=== PATIENT | female | born 1985 | race African-American/Black ===

== ENCOUNTER 2018-06-02 08:33 | Inpatient (IN) | payer OTHER ==
[~2018-06-02] VITALS: Ht 160 cm; Wt 83.0 kg
--- NOTE | 2018-06-02 09:59 | History & Physical ---
General Information and HPI MD Statement: I have seen and personally examined CHRISTIANO MCKEON and documented this H&P. The patient is a 32 year old female at 39 weeks and 1 days gestation who presented with a chief complaint of induction of labor. Source of Information: patient, old records Exam Limitations: no limitations History of Present Illness: Patient is a 32 year old female with history of x 2 and now at 39w1d with complicated by marginal cord insertion and for induction of labor as with favorable cervix. Good movement. No symptoms of preeclampsia. 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: labor Past Pregnancies Past Pregnancies: 1 Date of Delivery: 07/31/2000 Gestational Age: 25 Weight: [id number] Type of Delivery: vaginal Complications: none Past Pregnancies: 2 Date of Delivery: 02/17/2010 Gestational Age: 34 Weight: 5lb5oz Type of Delivery: vaginal Complications: none Past Pregnancies: 3 Date of Delivery: 06/03/2017 Gestational Age: 35 Weight: 6lb2oz Type of Delivery: vaginal Place of Delivery: [facility] Complications: none Medical History Blood Transfusion Hx: No Neurological: NONE EENT: NONE Cardiovascular: NONE Respiratory: NONE Gastrointestinal: NONE Hepatic: NONE Renal: NONE Musculoskeletal: NONE Psychiatric: NONE Endocrine: NONE Blood Disorders: anemia Cancer(s): NONE 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 Home Who Do You Live With? spouse, child Primary Language: Armenian Smoking Status: Never Smoked ETOH Use: denies use Illicit Drug Use: denies illicit drug use Living Will? 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 EENTM: Denies: no symptoms. Cardiovascular: Denies: no symptoms. Respiratory: Denies: no symptoms. GI: Denies: no symptoms. Genitourinary: Denies: no symptoms. Musculoskeletal: Denies: no symptoms. Skin: Denies: no symptoms. Neurological/Psychological: Reports: no symptoms, other (Sciatica pain on left side). Hematologic/Endocrine: Denies: no symptoms. Immunologic/Allergic: Denies: no symptoms. All Other Systems: Reviewed and Negative Date of LMP: 09/01/17 Post Menopausal: No Date of Last Pap Smear: 12/22/17 Comments Pap negative 2018 Exam & Diagnostic Data Last 24 Hrs of Vital Signs/I&O See electronic record Obstetric Exam Wgt Gained During : 13 lbs Pelvimetry: Gynecoid Dilation (cm): 3 Effacement (%): 50 Station: -3 Membranes: intact Fluid: Intact Fundal Height (cm): 39 Multiple Gestation? No Contractions: None Infant #1 - FHR Baseline: 140 Category: 1 Estimated Weight: 3200 Presentation: Cephalic Patient for Induction? Yes Gentile Score Gentile Score Response Value Cervix Position: posterior 0 Cervix Consistency: soft 2 Cervix Effacement: 30-50% 1 Cervix Dilation: 3-4 cm 2 Cervix Station: -3 0 Total 5 Physical Exam General Appearance Alert, Oriented X3, Cooperative, No Acute Distress Skin No Rashes, No Breakdown HEENT Atraumatic, PERRLA, EOMI Neck Supple, No JVD Cardiovascular Regular Rate, Normal S1, Normal S2, No Murmurs Lungs Clear to Auscultation, Normal Air Movement Abdomen Normal Bowel Sounds, Soft, No Tenderness Neurological Normal Gait, Normal Speech, Strength at 5/5 X4 Ext, Normal Tone, Sensation Intact, Cranial Nerves 3-12 NL, Reflexes 2+ Extremities No Edema Vascular Pulses Symmetrical Breasts Breast appear nl Reproductive (FEMALE) Normal female genitalia Pelvic (FEMALE) Appearance Normal Labs Blood Type & Rh: B positive Antibody Screen: negative Hct/Hgb & Platelets #1: 37.5/242 Hct/Hgb & Platelets #2: 32.3/226 Rubella: immune VDRL #1: negative VDRL #2: negative HbsAg: pending HIV #1: negative HIV #2 negative 1 Hr P 3 Hr PG: na Group B Strep: negative 05/07/2018 Initial Ultrasound: Normal at 16 weeks Anatomy Ultrasound: level 2 wnl except for marginal cord insertion Ultrasound for EFW: 04/28/18 2018 grams Genetic Testing: Negative NIPT and normal AFP Last 24 Hrs of Labs/Christ: Laboratory Tests 06/02/18 0915: CBC w Diff Pending, WBC Pending, RBC Pending, Hgb Pending, Hct Pending, MCV Pending, MCH Pending, MCHC Pending, RDW Pending, Plt Count Pending, MPV Pending, Hep Bs Antigen Pending Assessment/Plan Assessment/Plan: Patient is a 32 year old Para 1203 at 39w1d with complicated by obesity and marginal cord insertion. She is for induction of labor secondary to favorable cervix as well. Induction plan. Misoprostol and cervical oliver placed. 25 micrograms given per vagina and 24 malay cervical oliver placed with 30 cc fluid. Goal to shorten induction to delivery interval. Gentile at present 5. Risks of induction being pain, abnormal heart rate and pyrexia. Benefits being reduction in the risk of stillbirth, preeclampsia, oligohydramnios and meconium stained fluid. Consent obtained for vaginal and misoprostol. Pain mgmt strategies outlined and she is a candidate for Nitrous as well should she request same. Epidural as needed GBBS negative so unless pyrexia in labor no indication for antibiotics. May have clear liquids and ambulate according to protocol while being induced. Follow up hepatitis s AG and pre vaginal labs. ALPS in labor after epidural is placed to reduce VTE risks. Catagory 1 tracing. Anticipate vaginal . Ample time given for questions. partner at bedside. As Ranked By This Provider Problem List: 1. Marginal insertion of umbilical cord affecting management of mother in third trimester Core Measures Venous Thromboembolism VTE Risk Factors / No Mechanical VTE Prophylaxis d/t N/A MechProphylax Ordered No VTE Pharm Prophylaxis d/t Other Comment: alps in labor Attending MD Review Statement Attending Statement Attending MD Statement: examined this patient, discussed with family, discussed w/nursing
[2018-06-02 10:33] LABS: ABSOLUTE BASOPHIL COUNT 0 /CUMM (0.0-0.2); ABSOLUTE EOSINOPHIL COUNT 0 /CUMM (0.0-0.7); ABSOLUTE GRANULOCYTE CT 3.6 /CUMM (1.4-6.5); ABSOLUTE LYMPH COUNT 1.3 /CUMM (1.2-3.4); ABSOLUTE MONOCYTE COUNT 0.4 /CUMM (0.10-0.60); BASOPHIL % 0.5 % (0.0-2.0); EOSINOPHIL % 0.3 % (0-5); HEMATOCRIT 31.3 % (37-47); MEAN CORPUSCULAR HGB 23.1 PG (27.0-31.0); MEAN CORPUSCULAR HGB CONC 32.4 G/DL (33.0-37.0); MEAN CORPUSCULAR VOLUME 71.3 FL (81.0-99.0); MEAN PLATELET VOLUME 11.3 FL (7.4-10.4); RBC DISTRIBUTION WIDTH 16.6 % (11.5-14.5); WHITE BLOOD CELL COUNT 5.3 /CUMM (4.8-10.8)
[2018-06-02 10:46] LABS: PLATELET COUNT 181 /CUMM (130-400)
--- NOTE | 2018-06-02 14:26 | PN- OBGYN ---
Surgical Brief Attending Note Brief Attending Note: Seen and evaluated Comfortable but starting to feel more contractions AVSS Catagory 1 tracing Contractions now q5-7 Second dose of misoprostol placed per vagina. 25 micrograms placed. Reevaluate at 3-4 hours. After observation may continue to ambulate. Anticipate transcervical oliver removal at appx 9 pm Anticipate vaginal .
--- NOTE | 2018-06-02 19:54 | PN- OBGYN ---
Surgical Brief Attending Note Brief Attending Note: Comfortable at present Haynes removed from cervix AVSS Catagory 1 tracing 5/80/-3/post/soft. Favorable florian at present Will start on oxytocin to increase contraction pattern. Once begins to feel pattern over next one to two hours will amniotomy. Most likely will be able to dc oxytocin thereafter Epidural as needed Anticipate vaginal .
--- NOTE | 2018-06-02 22:12 | PN- OBGYN ---
Surgical Brief Attending Note Brief Attending Note: Comfortable with epidural /-3 no molding. gynecoid pelvis ROT noted AROM clear Contractions are q2 on the oxytocin so it was dc'd once arom done Catagory 1 tracing Anticipate vaginal
--- NOTE | 2018-06-03 00:08 | Labor & Delivery Summary ---
Delivery Summary Vaginal Delivery: Vaginal: vertex Episiotomy/Lacerations: Episiotomy/Lacerations: none Placenta: Placenta: spontanteous, SGA on gross inspection and marginal cord insertion Anesthesia: Epidural Cord PH Value: NA Apgars - 1 Min: 9 Apgars - 5 Min: 9 Additional Comments: Delivered through intact perineum. OA and rotated to have left shoulder anterior. Shoulders passed spontaneously. Infant delivered and given to mother. Cord clamped and cut Perineum and vagina without laceration Oxytocin given and uterus tonic EBL 200 cc Placenta passed spontaneously and inspected with above findings.
[2018-06-03 00:14] VITALS: BP 116/73
[2018-06-03 10:48] LABS: ABSOLUTE BASOPHIL COUNT 0 /CUMM (0.0-0.2); ABSOLUTE EOSINOPHIL COUNT 0 /CUMM (0.0-0.7); ABSOLUTE GRANULOCYTE CT 5.9 /CUMM (1.4-6.5); ABSOLUTE LYMPH COUNT 1.5 /CUMM (1.2-3.4); ABSOLUTE MONOCYTE COUNT 0.5 /CUMM (0.10-0.60); BASOPHIL % 0.3 % (0.0-2.0); EOSINOPHIL % 0.3 % (0-5); GRANULOCYTE % 74.2 % (42.2-75.2); HEMATOCRIT 33.2 % (37-47); MEAN CORPUSCULAR HGB 23.2 PG (27.0-31.0); MEAN CORPUSCULAR HGB CONC 32.6 G/DL (33.0-37.0); MEAN CORPUSCULAR VOLUME 71.3 FL (81.0-99.0); MEAN PLATELET VOLUME 10.6 FL (7.4-10.4); PLATELET COUNT 192 /CUMM (130-400); RBC DISTRIBUTION WIDTH 17.2 % (11.5-14.5); RED BLOOD CELL CT 4.66 /CUMM (4.20-5.40); WHITE BLOOD CELL COUNT 7.9 /CUMM (4.8-10.8)
--- NOTE | 2018-06-03 12:23 | PN- OBGYN ---
Surgical Brief Attending Note Brief Attending Note: Seen and evaluated Doing well except for uterine cramps when breast feeding Denies nausea AVSS NAD Nontender fundus Hct 33.2 and platelets 192 Rh positive PPD#1 Pain mgmt strategies reviewed Continue on Vitamin D for deficiency and to boost levels for breast feeding Continue on iron supplementation given MCV 70's DC home in am and follow up 5 weeks for and IUD insertion.
[2018-06-04] MEDS ORDERED: IBUPROFEN800 M1 PO (09:03)
--- NOTE | 2018-06-04 09:07 | PN- OBGYN ---
Surgical Brief Attending Note Brief Attending Note: Patient seen and evaluated Noting cramps when breast feeding but otherwise okay. Denies vaginal discomfort Denies back pain Breast feeding without issue AVSS DC home today Afebrile and no findings of endometritis Up to date with Tdap vaccine from 05/17/2017 Anemia. To continue on Niferex daily Informed to follow up with Peds for this coming week. She has a provider in [place] Informed to follow up for 5 weeks for and IUD to be placed at that time expectations reviewed with patient regarding pain and breast feeding.
== END 2018-06-04 09:55 | DRG 775 ==
LOC: GNO 08:33
PROVIDERS: Obstetrics & Gynecology
PROC: 3E0P7VZ Introduction of Hormone into Female Reproductive, Via Natural or Artificial Opening (ICD-10-PCS; principal; 2018-06-03)
PROC: 10E0XZZ Delivery of Products of Conception, External Approach (ICD-10-PCS; principal; 2018-06-03)
DX: O43.123 Velamentous insertion of umbilical cord, third trimester (principal); Z3A.39 39 weeks gestation of pregnancy; Z37.0 Single live birth
CPT/HCPCS: GNOP; GNOS; 36415; 81001; J7120